=== PATIENT | male | born 1940 | race Caucasian/White ===

== ENCOUNTER 2017-03-02 10:56 | Inpatient (IN) | payer MEDICARE ==
[~2017-03-02] VITALS: Ht 182.8 cm; Wt 103.1 kg
--- NOTE | ~2017-03-02 | CON ---
[place], [place] REPORT OF CONSULTATION NAME: [facility]A [facility]: [id number] UNIT #: [id number] ROOM: 519 DOCTOR: GAVIN GONZALES MD BIRTHDATE: [birth year] DOS: 03/03/2017 REQUESTING PHYSICIAN: Dr. Garcia and Dr. Hunt. REASON FOR CONSULTATION: Acute myocardial infarction. ASSESSMENT: 1. Current presentation with typical complaint of chest pain. 2. Significant worsening of chest pain, not responding to nitroglycerin and usual anti-ischemic medication. 3. Elevated cardiac enzymes consistent with dpt-AG-fohizkz elevation myocardial infarction. 4. History of coronary artery disease, status post stent placed in at [facility] 5 years ago with no details available. 5. Previous history of tobacco abuse. 6. Diabetes. 7. Hypertension. 8. Hyperlipidemia. 9. Obesity. 10. Early family history of heart disease. PLAN: 1. Continue to cycle cardiac enzymes. 2. Enteric-coated aspirin 325 mg, then 81 mg. 3. Imdur 60 mg 1 tablet p.o. daily. 4. Lovenox 1 mg/kg subQ b.i.d. (hold p.m. dose prior to cardiac catheterization). 5. Keep patient n.p.o. for cardiac catheterization in a.m. 6. Call immediately for any recurrence of chest pain at any time. 7. Exercise, weight loss. 8. Consider sleep study. 9. Stop Motrin. HISTORY AND PHYSICAL: The patient is a pleasant 76-year-old gentleman unknown to our practice, was referred by Dr. Garcia for further evaluation and complaint of chest pain. The pain has been going for the past week. Pain is across the chest, heavy, tight and goes off and on. Initially very minimal, brought in slightly with exertion, got worse over time. The patient yesterday had a significant episode while resting. It did reach almost 7/10, lasted a few hours until the patient presented to the Emergency Room. Unfortunately, nobody gave him a sublingual nitroglycerin. Pain continued and the patient was placed on medication with good control at only Imdur 60 mg took care of the pain. Currently, the patient appeared to be pain free. Prior to that and for the past 5 years, has been doing relatively well. He has limited functional capacity, mainly due to his spinal stenosis and his hip pain and his pain where he had replacement. Usually sleeps on 2 pillows with no reported PND, orthopnea or pedal edema. Apparently, there is no reported loud snoring and no sleep apnea. No fever, no chills, no night sweats. The patient denies ever any symptomatic palpitation or racing heartbeats or any associated dizziness, lightheadedness or near syncope. No fever, no chills, no night sweats. Maintain good appetite, no [place], [place] REPORT OF CONSULTATION NAME: TOMEKA ARRIAGA UNIT #: [id number] ROOM: [facility] DOCTOR: GAVIN GONZALES MD BIRTHDATE: 40 weight loss. PAST MEDICAL HISTORY: As detailed in my assessment. SOCIAL HISTORY: The patient denies any current tobacco, alcohol or illicit drug abuse. FAMILY HISTORY: The patient's father had myocardial infarction at age 62. His mother has a stroke at age 64. CURRENT MEDICATIONS: Vitamin D, Lipitor, lisinopril, Zebeta, lipid, aspirin, vitamin B12, insulin, Motrin, calcium carbonate, Restoril, Dulcolax and Tylenol. ALLERGIES: The patient has no known drug allergies. REVIEW OF SYSTEMS: Currently, the patient denies any headache, diplopia or blurry vision. No fever, no chills, no night sweats, no abdominal pain, no bright blood per rectum or tarry stools. The patient admits to joint pain, but no muscular pain. No anxiety, no depression, no polyuria, no polydipsia, no skin rash. PHYSICAL EXAMINATION: GENERAL: The patient is alert and oriented x 3, quite pleasant, completely flat in bed, does not appear in distress. Denies any ongoing cardiac complaint. Family at bedside, 2 daughters and his . VITAL SIGNS: Blood pressure 115/55, heart rate 50, respiration rate of 16, temperature 97.8. HEENT: Extraocular muscle intact. Pupils equal, round and reactive to light. Conjunctivae: No pallor. Throat: No petechiae. NECK: Good carotid upstroke. Unable to appreciate any bruit, no lymphadenopathy, no thyromegaly. HEART: S1, S2 with faint holosystolic murmur in the left upper sternal border. No rub, no sternal heave. CHEST AND BACK: No deformities. LUNGS: Clear to auscultation. Decreased air movement. No wheezing, no rales. ABDOMEN: Obese, soft, nontender, present bowel sounds, no masses, no bruits. EXTREMITIES: Lower extremities, no edema with faint distal pulses. NEUROLOGIC: Grossly nonfocal. SKIN: No significant rash. DIAGNOSTIC DATA: Electrocardiogram showed normal sinus rhythm with RSR prime in V1 and V2 along with nonspecific ST changes throughout the EKG. LABORATORY DATA: White count 8.0, hemoglobin 13.2, glucose 100. Hemoglobin A1c 6. AST 78, alkaline phosphatase 36, HDL 36, LDL 49, cholesterol 107, triglyceride 108. TSH and free T4 are normal. Initial troponin is 3.2, then 0.9 and then 0.2. CK-MB is 66.7. CLINICAL NOTE: The patient never had a serious effect with no intervention was done at time for the critical is 30 minutes to 74. [place], [place] REPORT OF CONSULTATION NAME: TOMEKA ARRIAGA UNIT #: [id number] ROOM: [facility] DOCTOR: GAVIN GONZALES MD BIRTHDATE: [birth year] GAVIN GONZALES MD CM:CONSTR:REPORT OF CONSULTATION 1157 03/04/17 1541 interface
[~2017-03-02 10:56] MED LIST: LOTREL 5 MG-201 CA1 PO; METFORMIN500 MG PO; MOTRIN800 MG PO
[2017-03-02 11:10] VITALS: BP 164/74
[2017-03-02 11:10] LABS: BASO # 0.1 10*3/uL (0.0-0.1); BASO % 0.5 % (0.0-1.0); EOS # 0.2 10*3/uL (0.0-0.4); EOS % 1.7 % (1.0-4.0); HEMOGLOBIN 15.5 g/dl (14.0-18.0); LYMPH # 1.4 10*3/uL (1.3-4.4); LYMPH % 14.1 % (27.0-41.0); MEAN CORPUSCULAR HGB 31.7 pg (27.0-31.0); MEAN CORPUSCULAR HGB CONC 35.2 g/dl (33.0-37.0); MEAN PLATELET VOLUME 10.7 fl (9.6-12.3); MONO # 0.7 10*3/uL (0.1-1.0); MONO % 6.9 % (3.0-9.0); NEUT # 7.7 10*3/uL (2.3-7.9); NEUT % 76.5 % (47.0-73.0); PLATELET COUNT AUTOMATED 241 10*3/uL (130-400); RED BLOOD COUNT 4.89 10*6/uL (4.50-5.90); RED CELL DISTRI WIDTH 11.9 % (0-14.5); WHITE BLOOD COUNT 10.1 10*3/uL (4.8-10.8)
[2017-03-02 11:20] LABS: ACT PARTIAL THROMBO TIME 23.1 SECONDS (20.8-31.5)
[2017-03-02 11:27] LABS: ALBUMIN 3.8 gm/dl (3.1-4.5); ALKALINE PHOSPHATASE 41 U/L (45-117); BUN 24 mg/dl (7-24); CHLORIDE 101 mmol/L (98-107); CREATININE 1.07 mg/dL (0.70-1.30); POTASSIUM 4.4 mmol/L (3.5-5.1); SGOT/AST 19 IU/L (3-35); SGPT/ALT 24 U/L (12-78); SODIUM 135 mmol/L (136-145); TOTAL PROTEIN 7.7 gm/dL (6.4-8.2)
[2017-03-02 11:29] LABS: TROPONIN I < 0.015 ng/ml (<0.045)
[2017-03-02 11:45] VITALS: BP 166/78
[2017-03-02] MEDS ORDERED: METFORMIN500 MG PO (11:45)
[2017-03-02] MEDS ORDERED: LIPITOR20 MG PO (11:46)
[2017-03-02] MEDS ORDERED: BENAZEPRIL20 MG PO (11:46)
[2017-03-02] MEDS ORDERED: VITAMIN D50000 UNIT PO (11:47)
[2017-03-02] MEDS ORDERED: BYSTOLIC5 MG PO (11:47)
[2017-03-02] MEDS ORDERED: AMLODIPINE BESYL5 MG PO (11:47)
[2017-03-02] MEDS ORDERED: ASPIRIN81 M1 PO (11:47)
[2017-03-02] MEDS ORDERED: Motrin,Rufen800 MG PO (11:47)
[2017-03-02] MEDS ORDERED: OYSTER SHELL C1 EAC3 PO (11:48)
[2017-03-02 12:10] VITALS: BP 150/70
[2017-03-02 12:14] VITALS: BP 124/68
[2017-03-02 16:00] VITALS: BP 146/74
[2017-03-02 20:00] VITALS: BP 166/67
[2017-03-02 20:40] LABS: CKMB 26.4 ng/ml (0.5-3.6); TROPONIN I 0.972 ng/ml (<0.045)
[2017-03-02 23:40] LABS: CKMB 66.7 ng/ml (0.5-3.6)
[2017-03-02 23:41] LABS: TROPONIN I 3.29 ng/ml (<0.045)
[2017-03-03] VITALS: BP 141/71
[2017-03-03 04:00] VITALS: BP 117/63
[2017-03-03 06:31] LABS: BASO % 0.5 % (0.0-1.0); EOS # 0.2 10*3/uL (0.0-0.4); EOS % 2.5 % (1.0-4.0); HEMATOCRIT 38.4 % (42.0-52.0); LYMPH # 1.3 10*3/uL (1.3-4.4); LYMPH % 16.2 % (27.0-41.0); MEAN CELL VOLUME 91.2 fl (80.0-94.0); MEAN CORPUSCULAR HGB 31.4 pg (27.0-31.0); MEAN CORPUSCULAR HGB CONC 34.4 g/dl (33.0-37.0); MEAN PLATELET VOLUME 11.3 fl (9.6-12.3); MONO # 0.8 10*3/uL (0.1-1.0); MONO % 9.9 % (3.0-9.0); NEUT # 5.7 10*3/uL (2.3-7.9); NEUT % 70.5 % (47.0-73.0); PLATELET COUNT AUTOMATED 217 10*3/uL (130-400); RED BLOOD COUNT 4.21 10*6/uL (4.50-5.90); RED CELL DISTRI WIDTH 11.9 % (0-14.5)
[2017-03-03 06:34] LABS: HEMOGLOBIN 13.2 g/dl (14.0-18.0)
[2017-03-03 06:40] LABS: ALBUMIN 3.4 gm/dl (3.1-4.5); ALKALINE PHOSPHATASE 36 U/L (45-117); BUN 20 mg/dl (7-24); CHLORIDE 101 mmol/L (98-107); CHOLESTEROL 107 mg/dL (<200); CREATININE 0.87 mg/dL (0.70-1.30); FREE T4 1.08 ng/dl (0.76-1.46); HDL CHOLESTEROL 36 mg/dl (40-60); LDL CHOLESTEROL 49 mg/dL (9-159); PHOSPHOROUS 3.7 mg/dL (2.5-4.9); POTASSIUM 4.1 mmol/L (3.5-5.1); SGOT/AST 78 IU/L (3-35); SGPT/ALT 26 U/L (12-78); SODIUM 137 mmol/L (136-145); TOTAL PROTEIN 6.4 gm/dL (6.4-8.2); TRIGLYCERIDES 108 mg/dl (<150); VLDL CHOLESTEROL 22 mg/dL (6-40)
[2017-03-03 08:00] VITALS: BP 115/55
[2017-03-03 12:00] VITALS: BP 123/59
[2017-03-03 16:00] VITALS: BP 118/58
[2017-03-03] MEDS ORDERED: IMDUR SA30 MG PO (16:36)
[2017-03-03] MEDS ORDERED: NITROSTAT0.4 MG SL (16:36)
[2017-03-03 20:00] VITALS: BP 126/61
[2017-03-04] VITALS: BP 140/50
== END 2017-03-04 05:15 | disposition other institution (70) | DRG 281 ==
LOC: ED 10:56 → 5E 11:39 → EDHOLD 11:39 → 5E 11:43
PROVIDERS: Emergency Medicine; Internal Medicine; Internal Medicine Cardiovascular Disease; ADMIT Internal Medicine
DX: I21.4 Non-ST elevation (NSTEMI) myocardial infarction (principal); E87.1 Hypo-osmolality and hyponatremia; E11.65 Type 2 diabetes mellitus with hyperglycemia; R07.2 Precordial pain; D72.810 Lymphocytopenia; E66.9 Obesity, unspecified; Z96.642 Presence of left artificial hip joint; I25.119 Atherosclerotic heart disease of native coronary artery with unspecified angina pectoris; G89.29 Other chronic pain; M54.9 Dorsalgia, unspecified; E78.5 Hyperlipidemia, unspecified; I10 Essential (primary) hypertension; R00.1 Bradycardia, unspecified; M48.00 Spinal stenosis, site unspecified; Z79.84 Long term (current) use of oral hypoglycemic drugs; Z79.82 Long term (current) use of aspirin; Z79.899 Other long term (current) drug therapy; Z87.891 Personal history of nicotine dependence; Z95.5 Presence of coronary angioplasty implant and graft; Z82.49 Family history of ischemic heart disease and other diseases of the circulatory system; Z83.3 Family history of diabetes mellitus; Z68.30 Body mass index [BMI] 30.0-30.9, adult; Z82.3 Family history of stroke; Z79.1 Long term (current) use of non-steroidal anti-inflammatories (NSAID)

== ENCOUNTER → 2017-04-09 | Outpatient (CLI) | payer MEDICARE ==
[~2017-04-09] MED LIST changes: +AMLODIPINE BESYL5 MG PO; +ASPIRIN81 M1 PO; +BENAZEPRIL20 MG PO; +BYSTOLIC5 MG PO; +IMDUR SA30 MG PO; +LIPITOR20 MG PO; +Motrin,Rufen800 MG PO; +NITROSTAT0.4 MG SL; +OYSTER SHELL C1 EAC3 PO; +VITAMIN D50000 UNIT PO
== END ==
LOC: CARD 01:11
DX: I08.0 Rheumatic disorders of both mitral and aortic valves (principal); I25.10 Atherosclerotic heart disease of native coronary artery without angina pectoris

== ENCOUNTER → 2017-06-26 | Outpatient (CLI) | payer MEDICARE ==
[2017-06-26 08:50] LABS: CHLORIDE 103 mmol/L (98-107); POTASSIUM 4.7 mmol/L (3.5-5.1); SODIUM 135 mmol/L (136-145)
[2017-06-26 09:01] LABS: BASO % 0.5 % (0.0-1.0); EOS # 0.1 10*3/uL (0.0-0.4); EOS % 1.5 % (1.0-4.0); HEMOGLOBIN 14.9 g/dl (14.0-18.0); LYMPH # 1.5 10*3/uL (1.3-4.4); LYMPH % 17.6 % (27.0-41.0); MEAN CELL VOLUME 91.5 fl (80.0-94.0); MEAN CORPUSCULAR HGB 31.7 pg (27.0-31.0); MEAN CORPUSCULAR HGB CONC 34.7 g/dl (33.0-37.0); MEAN PLATELET VOLUME 10.6 fl (9.6-12.3); MONO # 0.7 10*3/uL (0.1-1.0); MONO % 8.4 % (3.0-9.0); NEUT # 6.2 10*3/uL (2.3-7.9); NEUT % 71.5 % (47.0-73.0); PLATELET COUNT AUTOMATED 262 10*3/uL (130-400); RED CELL DISTRI WIDTH 12.6 % (0-14.5); WHITE BLOOD COUNT 8.7 10*3/uL (4.8-10.8)
[2017-06-26 09:10] LABS: ALKALINE PHOSPHATASE 33 U/L (45-117); BUN 18 mg/dl (7-24); CHOLESTEROL 122 mg/dL (<200); CREATININE 0.94 mg/dL (0.70-1.30); HDL CHOLESTEROL 38 mg/dl (40-60); LDL CHOLESTEROL 69 mg/dL (9-159); SGOT/AST 21 IU/L (3-35); SGPT/ALT 30 U/L (12-78); TOTAL PROTEIN 7.7 gm/dL (6.4-8.2); TRIGLYCERIDES 76 mg/dl (<150); VLDL CHOLESTEROL 15 mg/dL (6-40)
== END | disposition home or self-care (01) ==
LOC: LAB 07:57
PROVIDERS: Internal Medicine
DX: Z12.5 Encounter for screening for malignant neoplasm of prostate (principal); I10 Essential (primary) hypertension; E55.9 Vitamin D deficiency, unspecified; E78.2 Mixed hyperlipidemia; N40.1 Benign prostatic hyperplasia with lower urinary tract symptoms

== ENCOUNTER → 2018-01-30 | Outpatient (CLI) | payer MEDICARE ==
[~2018-01-30] MED LIST changes: +DELTASONE20 M1 PO; +NORCO 5-325 TA1 EACH PO
== END | disposition home or self-care (01) ==
LOC: RESCLI 08:38
DX: I10 Essential (primary) hypertension (principal); E11.42 Type 2 diabetes mellitus with diabetic polyneuropathy; L20.89 Other atopic dermatitis; E78.2 Mixed hyperlipidemia; I25.10 Atherosclerotic heart disease of native coronary artery without angina pectoris; M48.00 Spinal stenosis, site unspecified; Z79.82 Long term (current) use of aspirin; Z79.899 Other long term (current) drug therapy

== ENCOUNTER 2018-01-31 11:26 | Emergency (ER) | payer MEDICARE ==
[~2018-01-31] VITALS: Ht 182.8 cm; Wt 98.9 kg
[~2018-01-31 11:26] MED LIST changes: -DELTASONE20 M1 PO; -NORCO 5-325 TA1 EACH PO
[2018-01-31] MEDS ORDERED: DELTASONE20 M1 PO (14:28)
[2018-01-31] MEDS ORDERED: NORCO 5-325 TA1 EACH PO (14:28)
== END 2018-01-31 14:40 | disposition home or self-care (01) ==
LOC: ED 11:26
DX: M54.16 Radiculopathy, lumbar region (principal); Z79.899 Other long term (current) drug therapy; Z79.82 Long term (current) use of aspirin; Z87.891 Personal history of nicotine dependence

== ENCOUNTER → 2018-02-04 | Outpatient (CLI) | payer MEDICARE ==
[~2018-02-04] MED LIST changes: +DELTASONE20 M1 PO; +NORCO 5-325 TA1 EACH PO
== END | disposition home or self-care (01) ==
LOC: RESCLI 02:37
DX: I10 Essential (primary) hypertension (principal); E11.42 Type 2 diabetes mellitus with diabetic polyneuropathy; L20.89 Other atopic dermatitis; E78.2 Mixed hyperlipidemia; I25.10 Atherosclerotic heart disease of native coronary artery without angina pectoris; M48.00 Spinal stenosis, site unspecified; Z79.82 Long term (current) use of aspirin; Z79.84 Long term (current) use of oral hypoglycemic drugs; Z79.899 Other long term (current) drug therapy

== ENCOUNTER → 2018-03-11 | Outpatient (CLI) | payer MEDICARE | END | disposition home or self-care (01) | LOC: RESCLI 04:50 | DX: I25.10 Atherosclerotic heart disease of native coronary artery without angina pectoris (principal); L20.89 Other atopic dermatitis; I10 Essential (primary) hypertension; E78.2 Mixed hyperlipidemia; E11.42 Type 2 diabetes mellitus with diabetic polyneuropathy; M19.90 Unspecified osteoarthritis, unspecified site; Z79.82 Long term (current) use of aspirin; Z79.899 Other long term (current) drug therapy; Z79.84 Long term (current) use of oral hypoglycemic drugs ==

== ENCOUNTER → 2019-01-20 | Outpatient (CLI) | payer MEDICARE | END | disposition home or self-care (01) | LOC: RESCLI 00:26 | DX: Z23 Encounter for immunization (principal); M17.0 Bilateral primary osteoarthritis of knee; G89.29 Other chronic pain; I10 Essential (primary) hypertension; E55.9 Vitamin D deficiency, unspecified; L20.89 Other atopic dermatitis; I25.10 Atherosclerotic heart disease of native coronary artery without angina pectoris; E11.9 Type 2 diabetes mellitus without complications; E78.2 Mixed hyperlipidemia; E66.9 Obesity, unspecified; Z68.32 Body mass index [BMI] 32.0-32.9, adult; Z79.82 Long term (current) use of aspirin; Z79.899 Other long term (current) drug therapy; Z79.84 Long term (current) use of oral hypoglycemic drugs; Z79.02 Long term (current) use of antithrombotics/antiplatelets; Z95.5 Presence of coronary angioplasty implant and graft ==

== ENCOUNTER → 2019-02-24 | Outpatient (CLI) | payer MEDICARE | END | disposition home or self-care (01) | LOC: RESCLI 01:14 | DX: I25.10 Atherosclerotic heart disease of native coronary artery without angina pectoris (principal); I10 Essential (primary) hypertension; E55.9 Vitamin D deficiency, unspecified; L20.89 Other atopic dermatitis; E11.9 Type 2 diabetes mellitus without complications; E78.2 Mixed hyperlipidemia; E66.9 Obesity, unspecified; M17.0 Bilateral primary osteoarthritis of knee; Z79.899 Other long term (current) drug therapy ==

== ENCOUNTER → 2019-02-27 | Outpatient (CLI) | payer MEDICARE | END | disposition home or self-care (01) | LOC: ORTHO 01:21 | DX: M17.11 Unilateral primary osteoarthritis, right knee (principal) ==

== ENCOUNTER → 2019-04-01 | Outpatient (CLI) | payer MEDICARE | END | disposition home or self-care (01) | LOC: RESCLI 00:28 | DX: E55.9 Vitamin D deficiency, unspecified (principal); L20.89 Other atopic dermatitis; I10 Essential (primary) hypertension; E78.2 Mixed hyperlipidemia; I25.10 Atherosclerotic heart disease of native coronary artery without angina pectoris; E11.9 Type 2 diabetes mellitus without complications; M17.10 Unilateral primary osteoarthritis, unspecified knee; E66.9 Obesity, unspecified; Z79.899 Other long term (current) drug therapy ==

== ENCOUNTER → 2019-04-02 | Outpatient (CLI) | payer MEDICARE ==
[2019-04-02 09:41] LABS: BASO % 0.4 % (0.0-1.0); EOS # 0.2 10*3/uL (0.0-0.4); EOS % 2.6 % (1.0-4.0); HEMATOCRIT 45.8 % (42.0-52.0); HEMOGLOBIN 15.5 g/dl (14.0-18.0); LYMPH # 1.5 10*3/uL (1.3-4.4); LYMPH % 21.3 % (27.0-41.0); MEAN CELL VOLUME 94.4 fl (80.0-94.0); MEAN CORPUSCULAR HGB CONC 33.8 g/dl (33.0-37.0); MEAN PLATELET VOLUME 10.8 fl (9.6-12.3); MONO # 0.8 10*3/uL (0.1-1.0); NEUT # 4.4 10*3/uL (2.3-7.9); NEUT % 64.3 % (47.0-73.0); PLATELET COUNT AUTOMATED 238 10*3/uL (130-400); RED BLOOD COUNT 4.85 10*6/uL (4.50-5.90); RED CELL DISTRI WIDTH 11.7 % (0-14.5); WHITE BLOOD COUNT 6.8 10*3/uL (4.8-10.8)
[2019-04-02 10:11] LABS: ALKALINE PHOSPHATASE 30 U/L (45-117); BUN 22 mg/dl (7-24); CHLORIDE 107 mmol/L (98-107); CHOLESTEROL 130 mg/dL (<200); CREATININE 0.91 mg/dL (0.70-1.30); HDL CHOLESTEROL 41 mg/dl (40-60); LDL CHOLESTEROL 62 mg/dL (9-159); PHOSPHOROUS 2.8 mg/dL (2.5-4.9); POTASSIUM 3.9 mmol/L (3.5-5.1); SGOT/AST 15 IU/L (3-35); SGPT/ALT 30 U/L (12-78); SODIUM 137 mmol/L (136-145); TOTAL PROTEIN 7.1 gm/dL (6.4-8.2); TRIGLYCERIDES 134 mg/dl (<150); VLDL CHOLESTEROL 27 mg/dL (6-40)
[2019-04-02 10:34] LABS: VITAMIN D, 25-HYDROXY 45.8 ng/mL (30-100)
== END | disposition home or self-care (01) ==
LOC: LAB 08:29
PROVIDERS: Internal Medicine
DX: Z12.5 Encounter for screening for malignant neoplasm of prostate (principal); I10 Essential (primary) hypertension; E55.9 Vitamin D deficiency, unspecified; E78.2 Mixed hyperlipidemia; E11.42 Type 2 diabetes mellitus with diabetic polyneuropathy; E11.9 Type 2 diabetes mellitus without complications

== ENCOUNTER → 2019-09-30 | Outpatient (CLI) | payer MEDICARE | END | disposition home or self-care (01) | LOC: RESCLI 01:13 | DX: I10 Essential (primary) hypertension (principal); E11.9 Type 2 diabetes mellitus without complications; M17.0 Bilateral primary osteoarthritis of knee; E78.2 Mixed hyperlipidemia; E55.9 Vitamin D deficiency, unspecified; M54.41 Lumbago with sciatica, right side; L20.84 Intrinsic (allergic) eczema; Z53.20 Procedure and treatment not carried out because of patient's decision for unspecified reasons; I25.10 Atherosclerotic heart disease of native coronary artery without angina pectoris; Z28.21 Immunization not carried out because of patient refusal; Z79.84 Long term (current) use of oral hypoglycemic drugs; Z79.82 Long term (current) use of aspirin; Z79.899 Other long term (current) drug therapy; Z95.828 Presence of other vascular implants and grafts; Z96.642 Presence of left artificial hip joint; Z98.890 Other specified postprocedural states ==

== ENCOUNTER → 2020-01-13 | Outpatient (CLI) | payer MEDICARE | END | disposition home or self-care (01) | LOC: RESCLI 01:12 | PROVIDERS: ATTEND Student in an Organized Health Care Education/Training Program | DX: Z23 Encounter for immunization (principal); E11.9 Type 2 diabetes mellitus without complications; I10 Essential (primary) hypertension; M17.0 Bilateral primary osteoarthritis of knee; E78.2 Mixed hyperlipidemia; E55.9 Vitamin D deficiency, unspecified; M54.41 Lumbago with sciatica, right side; I25.10 Atherosclerotic heart disease of native coronary artery without angina pectoris ==

== ENCOUNTER → 2020-01-19 | Outpatient (CLI) | payer MEDICARE | END | disposition home or self-care (01) | LOC: LAB 10:06 | PROVIDERS: ATTEND Internal Medicine | DX: E11.9 Type 2 diabetes mellitus without complications (principal) ==

== ENCOUNTER → 2020-04-27 | Outpatient (CLI) | payer MEDICARE | END | disposition home or self-care (01) | LOC: RESCLI 00:36 | PROVIDERS: ATTEND Internal Medicine | DX: I10 Essential (primary) hypertension (principal); E11.9 Type 2 diabetes mellitus without complications; I25.10 Atherosclerotic heart disease of native coronary artery without angina pectoris; M54.41 Lumbago with sciatica, right side; E78.2 Mixed hyperlipidemia; M17.0 Bilateral primary osteoarthritis of knee; Z79.82 Long term (current) use of aspirin; Z79.84 Long term (current) use of oral hypoglycemic drugs; Z79.899 Other long term (current) drug therapy ==

== ENCOUNTER → 2020-07-07 | Outpatient (CLI) | payer MEDICARE | END | disposition home or self-care (01) | LOC: RESCLI 09:21 | PROVIDERS: ATTEND Internal Medicine Nephrology | DX: L91.8 Other hypertrophic disorders of the skin (principal); I10 Essential (primary) hypertension; M19.90 Unspecified osteoarthritis, unspecified site; E11.9 Type 2 diabetes mellitus without complications; Z98.890 Other specified postprocedural states; Z79.82 Long term (current) use of aspirin; Z79.899 Other long term (current) drug therapy; Z96.642 Presence of left artificial hip joint; Z95.828 Presence of other vascular implants and grafts ==

== ENCOUNTER → 2020-10-12 | Outpatient (CLI) | payer MEDICARE | END | disposition home or self-care (01) | LOC: RESCLI 00:58 | PROVIDERS: ATTEND Internal Medicine | DX: I10 Essential (primary) hypertension (principal); E78.2 Mixed hyperlipidemia; E11.9 Type 2 diabetes mellitus without complications; I25.10 Atherosclerotic heart disease of native coronary artery without angina pectoris; E55.9 Vitamin D deficiency, unspecified; E66.9 Obesity, unspecified; L20.84 Intrinsic (allergic) eczema; M54.41 Lumbago with sciatica, right side; M17.0 Bilateral primary osteoarthritis of knee; Z79.82 Long term (current) use of aspirin; Z79.84 Long term (current) use of oral hypoglycemic drugs; Z79.899 Other long term (current) drug therapy ==

== ENCOUNTER → 2020-10-13 | Outpatient (CLI) | payer MEDICARE ==
[2020-10-13 09:32] LABS: BASO % 0.5 % (0.0-1.0); EOS # 0.2 10*3/uL (0.0-0.4); HEMATOCRIT 43.9 % (42.0-52.0); LYMPH # 1.6 10*3/uL (1.3-4.4); MEAN CELL VOLUME 94.8 fl (80.0-94.0); MEAN CORPUSCULAR HGB 31.7 pg (27.0-31.0); MEAN CORPUSCULAR HGB CONC 33.5 g/dl (33.0-37.0); MEAN PLATELET VOLUME 10.2 fl (9.6-12.3); MONO # 0.8 10*3/uL (0.1-1.0); MONO % 9.6 % (3.0-9.0); NEUT # 5.5 10*3/uL (2.3-7.9); NEUT % 67.4 % (47.0-73.0); PLATELET COUNT AUTOMATED 314 10*3/uL (130-400); RED BLOOD COUNT 4.63 10*6/uL (4.50-5.90); RED CELL DISTRI WIDTH 11.9 % (0-14.5); WHITE BLOOD COUNT 8.2 10*3/uL (4.8-10.8)
[2020-10-13 09:48] LABS: ALBUMIN 3.9 gm/dl (3.1-4.5); ALKALINE PHOSPHATASE 32 U/L (45-117); BUN 19 mg/dl (7-24); CHLORIDE 103 mmol/L (98-107); CHOLESTEROL 121 mg/dL (<200); CREATININE 0.95 mg/dL (0.70-1.30); LDL CHOLESTEROL 56 mg/dL (9-159); POTASSIUM 4.5 mmol/L (3.5-5.1); SGOT/AST 17 IU/L (3-35); SGPT/ALT 25 U/L (12-78); SODIUM 132 mmol/L (136-145); TOTAL PROTEIN 7.4 gm/dL (6.4-8.2); TRIGLYCERIDES 154 mg/dl (<150)
== END | disposition home or self-care (01) ==
LOC: LAB 08:47
PROVIDERS: Internal Medicine; ATTEND Internal Medicine
DX: I10 Essential (primary) hypertension (principal); E11.9 Type 2 diabetes mellitus without complications; E78.2 Mixed hyperlipidemia; E55.9 Vitamin D deficiency, unspecified; E66.9 Obesity, unspecified

== ENCOUNTER → 2021-01-11 | Outpatient (CLI) | payer MEDICARE | END | disposition home or self-care (01) | LOC: RESCLI 01:06 | PROVIDERS: ATTEND Student in an Organized Health Care Education/Training Program | DX: Z23 Encounter for immunization (principal); L20.84 Intrinsic (allergic) eczema; I25.10 Atherosclerotic heart disease of native coronary artery without angina pectoris; M54.41 Lumbago with sciatica, right side; M17.0 Bilateral primary osteoarthritis of knee; E11.9 Type 2 diabetes mellitus without complications; I10 Essential (primary) hypertension; E78.2 Mixed hyperlipidemia; Z79.899 Other long term (current) drug therapy; Z79.84 Long term (current) use of oral hypoglycemic drugs; Z79.82 Long term (current) use of aspirin; Z98.890 Other specified postprocedural states ==

== ENCOUNTER → 2021-04-26 | Outpatient (CLI) | payer MEDICARE ==
[2021-04-26 14:10] LABS: BASO # 0.1 10*3/uL (0.0-0.1); BASO % 0.5 % (0.0-1.0); EOS # 0.2 10*3/uL (0.0-0.4); EOS % 1.5 % (1.0-4.0); HEMATOCRIT 44.2 % (42.0-52.0); LYMPH # 1.4 10*3/uL (1.3-4.4); LYMPH % 13.3 % (27.0-41.0); MEAN CELL VOLUME 92.7 fl (80.0-94.0); MEAN CORPUSCULAR HGB 31.9 pg (27.0-31.0); MEAN CORPUSCULAR HGB CONC 34.4 g/dl (33.0-37.0); MEAN PLATELET VOLUME 10.6 fl (9.6-12.3); MONO # 0.9 10*3/uL (0.1-1.0); MONO % 8.1 % (3.0-9.0); NEUT % 76.3 % (47.0-73.0); PLATELET COUNT AUTOMATED 282 10*3/uL (130-400); RED BLOOD COUNT 4.77 10*6/uL (4.50-5.90); RED CELL DISTRI WIDTH 12.1 % (0-14.5); WHITE BLOOD COUNT 10.5 10*3/uL (4.8-10.8)
[2021-04-26 14:25] LABS: ALBUMIN 3.9 gm/dl (3.1-4.5); ALKALINE PHOSPHATASE 32 U/L (45-117); BUN 29 mg/dl (7-24); CHLORIDE 105 mmol/L (98-107); CREATININE 0.99 mg/dL (0.70-1.30); POTASSIUM 4.4 mmol/L (3.5-5.1); SGOT/AST 14 IU/L (3-35); SGPT/ALT 24 U/L (12-78); SODIUM 135 mmol/L (136-145); TOTAL PROTEIN 7.3 gm/dL (6.4-8.2)
== END | disposition home or self-care (01) ==
LOC: RESCLI 00:40
PROVIDERS: Internal Medicine; ATTEND Internal Medicine
DX: M17.0 Bilateral primary osteoarthritis of knee (principal); M25.762 Osteophyte, left knee; M25.761 Osteophyte, right knee; I10 Essential (primary) hypertension; E11.9 Type 2 diabetes mellitus without complications; I25.10 Atherosclerotic heart disease of native coronary artery without angina pectoris; E78.2 Mixed hyperlipidemia; L20.84 Intrinsic (allergic) eczema; M54.41 Lumbago with sciatica, right side; Z79.84 Long term (current) use of oral hypoglycemic drugs; Z79.899 Other long term (current) drug therapy; Z96.642 Presence of left artificial hip joint; Z98.890 Other specified postprocedural states

== ENCOUNTER → 2021-05-17 | Outpatient (CLI) | payer MEDICARE | LOC: US 13:15 | PROVIDERS: ATTEND Orthopaedic Surgery | DX: I73.89 Other specified peripheral vascular diseases (principal); M25.561 Pain in right knee; M25.562 Pain in left knee ==

== ENCOUNTER → 2021-08-02 | Outpatient (CLI) | payer MEDICARE | END | disposition home or self-care (01) | LOC: RESCLI 07-27 16:37 | PROVIDERS: ATTEND Emergency Medicine | DX: E78.5 Hyperlipidemia, unspecified (principal); E11.9 Type 2 diabetes mellitus without complications; I10 Essential (primary) hypertension; M19.90 Unspecified osteoarthritis, unspecified site; I25.10 Atherosclerotic heart disease of native coronary artery without angina pectoris; E78.2 Mixed hyperlipidemia; L20.84 Intrinsic (allergic) eczema; M54.41 Lumbago with sciatica, right side; M17.0 Bilateral primary osteoarthritis of knee; M51.36 Other intervertebral disc degeneration, lumbar region; Z96.642 Presence of left artificial hip joint; Z79.899 Other long term (current) drug therapy; Z98.890 Other specified postprocedural states ==

== ENCOUNTER → 2021-10-25 | Outpatient (CLI) | payer MEDICARE ==
[2021-10-25 12:04] LABS: BASO # 0.1 10*3/uL (0.0-0.1); BASO % 0.5 % (0.0-1.0); EOS # 0.2 10*3/uL (0.0-0.4); EOS % 1.9 % (1.0-4.0); LYMPH # 1.3 10*3/uL (1.3-4.4); LYMPH % 12.6 % (27.0-41.0); MEAN CELL VOLUME 92.7 fl (80.0-94.0); MEAN CORPUSCULAR HGB 32.7 pg (27.0-31.0); MEAN CORPUSCULAR HGB CONC 35.2 g/dl (33.0-37.0); MEAN PLATELET VOLUME 9.9 fl (9.6-12.3); MONO # 0.8 10*3/uL (0.1-1.0); NEUT # 7.8 10*3/uL (2.3-7.9); NEUT % 76.6 % (47.0-73.0); PLATELET COUNT AUTOMATED 285 10*3/uL (130-400); RED BLOOD COUNT 4.53 10*6/uL (4.50-5.90); WHITE BLOOD COUNT 10.2 10*3/uL (4.8-10.8)
[2021-10-25 12:19] LABS: ALKALINE PHOSPHATASE 31 U/L (45-117); BUN 22 mg/dl (7-24); CHLORIDE 105 mmol/L (98-107); CREATININE 1.02 mg/dL (0.70-1.30); POTASSIUM 4.7 mmol/L (3.5-5.1); SGOT/AST 17 IU/L (3-35); SGPT/ALT 20 U/L (12-78); SODIUM 134 mmol/L (136-145); TOTAL PROTEIN 7.1 gm/dL (6.4-8.2)
== END | disposition home or self-care (01) ==
LOC: RESCLI 01:18
PROVIDERS: ATTEND Internal Medicine
DX: I11.9 Hypertensive heart disease without heart failure (principal); E11.9 Type 2 diabetes mellitus without complications; I25.10 Atherosclerotic heart disease of native coronary artery without angina pectoris; M17.0 Bilateral primary osteoarthritis of knee; M54.41 Lumbago with sciatica, right side; E78.2 Mixed hyperlipidemia; L20.84 Intrinsic (allergic) eczema; Z79.899 Other long term (current) drug therapy; Z79.82 Long term (current) use of aspirin; Z79.01 Long term (current) use of anticoagulants

== ENCOUNTER → 2022-01-24 | Outpatient (CLI) | payer MEDICARE ==
[~2022-01-24] MED LIST changes: +CEFEPIME1 GM/50 ML IV; +HYDROCODONE-AC1 EAC1 PO; +IBU600 M1 PO; +METFORMIN HYDR500 MG PO; +METOPROLOL SUCC25 M2 PO; -Motrin,Rufen800 MG PO; +OYSTER SHELL 51 EAC5 PO; +PHARMASSURE V500 MCG PO; +PLAVIX75 M1 PO; +SINEMET 25-1001 EACH PO; +VANCO 1 GR1 GM/250 M IV; +VITAMIN D250 MC1 PO
== END | disposition home or self-care (01) ==
LOC: RESCLI 00:25
PROVIDERS: ATTEND Internal Medicine
DX: Z23 Encounter for immunization (principal); G20 Parkinson's disease; E78.2 Mixed hyperlipidemia; L20.84 Intrinsic (allergic) eczema; M54.41 Lumbago with sciatica, right side; I25.10 Atherosclerotic heart disease of native coronary artery without angina pectoris; M17.0 Bilateral primary osteoarthritis of knee; E11.9 Type 2 diabetes mellitus without complications; I10 Essential (primary) hypertension; Z95.5 Presence of coronary angioplasty implant and graft

== ENCOUNTER → 2022-04-25 | Outpatient (CLI) | payer MEDICARE ==
[2022-04-25 12:27] LABS: BASO # 0.1 10*3/uL (0.0-0.1); BASO % 0.6 % (0.0-1.0); EOS # 0.2 10*3/uL (0.0-0.4); EOS % 1.9 % (1.0-4.0); HEMATOCRIT 41.6 % (42.0-52.0); LYMPH # 1.2 10*3/uL (1.3-4.4); LYMPH % 13.6 % (27.0-41.0); MEAN CELL VOLUME 94.3 fl (80.0-94.0); MEAN CORPUSCULAR HGB CONC 33.9 g/dl (33.0-37.0); MEAN PLATELET VOLUME 10.1 fl (9.6-12.3); MONO # 0.6 10*3/uL (0.1-1.0); MONO % 7.1 % (3.0-9.0); NEUT # 6.9 10*3/uL (2.3-7.9); NEUT % 76.4 % (47.0-73.0); PLATELET COUNT AUTOMATED 253 10*3/uL (130-400); RED BLOOD COUNT 4.41 10*6/uL (4.50-5.90); RED CELL DISTRI WIDTH 12.3 % (0-14.5)
[2022-04-25 12:43] LABS: ALKALINE PHOSPHATASE 29 U/L (46-116); BUN 18 mg/dl (9-23); CHLORIDE 103 mmol/L (98-107); CHOLESTEROL 133 mg/dL (<200); LDL CHOLESTEROL 70 mg/dL (9-159); POTASSIUM 4.1 mmol/L (3.4-5.1); TOTAL PROTEIN 6.7 gm/dL (6.0-8.0); TRIGLYCERIDES 128 mg/dl (<150)
[2022-04-25 12:46] LABS: SGPT/ALT < 7 U/L (10-49)
== END | disposition home or self-care (01) ==
LOC: RESCLI 02:30
PROVIDERS: ATTEND Internal Medicine
DX: I10 Essential (primary) hypertension (principal); E11.9 Type 2 diabetes mellitus without complications; E78.2 Mixed hyperlipidemia; I25.10 Atherosclerotic heart disease of native coronary artery without angina pectoris; Z98.890 Other specified postprocedural states; Z82.49 Family history of ischemic heart disease and other diseases of the circulatory system; Z79.82 Long term (current) use of aspirin; Z79.84 Long term (current) use of oral hypoglycemic drugs; Z79.899 Other long term (current) drug therapy

== ENCOUNTER → 2022-07-24 | Outpatient (CLI) | payer MEDICARE ==
[2022-07-24 19:24] LABS: ALKALINE PHOSPHATASE 26 U/L (46-116); BUN 18 mg/dl (9-23); CHLORIDE 99 mmol/L (98-107); POTASSIUM 4.3 mmol/L (3.4-5.1); SGPT/ALT 14 U/L (10-49); TOTAL PROTEIN 6.9 gm/dL (6.0-8.0)
== END | disposition home or self-care (01) ==
LOC: LAB 16:59
PROVIDERS: ATTEND Internal Medicine
DX: U07.1 COVID-19 (principal)

== ENCOUNTER → 2022-08-01 | Outpatient (CLI) | payer MEDICARE | END | disposition home or self-care (01) | LOC: RESCLI 07-29 04:08 | PROVIDERS: ATTEND Internal Medicine | DX: E78.2 Mixed hyperlipidemia (principal); K59.00 Constipation, unspecified; E53.8 Deficiency of other specified B group vitamins; I10 Essential (primary) hypertension; M17.0 Bilateral primary osteoarthritis of knee; G20 Parkinson's disease; I25.10 Atherosclerotic heart disease of native coronary artery without angina pectoris; Z79.82 Long term (current) use of aspirin; Z79.84 Long term (current) use of oral hypoglycemic drugs; Z79.899 Other long term (current) drug therapy; Z86.16 Personal history of COVID-19 ==

== ENCOUNTER → 2024-05-18 | Outpatient (CLI) | payer MEDICARE | END | disposition home or self-care (01) | LOC: RAD 08:52 | PROVIDERS: ATTEND Internal Medicine | DX: M19.021 Primary osteoarthritis, right elbow (principal); M25.521 Pain in right elbow ==

== ENCOUNTER 2024-06-06 21:20 | Emergency (ER) | payer MEDICARE ==
[~2024-06-06] VITALS: Ht 185.4 cm; Wt 100.7 kg
[2024-06-06] MEDS ORDERED: ACETAMINOPHEN 325 MG TAB PO ONE (21:45)
[2024-06-06 22:05] LABS: HEMATOCRIT 42.4 % (42.0-52.0); MEAN CELL VOLUME 94.4 fl (80.0-94.0); MEAN CORPUSCULAR HGB 31.6 pg (27.0-31.0); MEAN CORPUSCULAR HGB CONC 33.5 g/dl (33.0-37.0); MEAN PLATELET VOLUME 9.8 fl (9.6-12.3); PLATELET COUNT AUTOMATED 233 10*3/uL (130-400); RED BLOOD COUNT 4.49 10*6/uL (4.50-5.90); RED CELL DISTRI WIDTH 12.3 % (0-14.5); WHITE BLOOD COUNT 12.7 10*3/uL (4.8-10.8)
[2024-06-06 22:06] LABS: MANUAL DIFF REFLEX YES
[2024-06-06 22:23] LABS: BUN 27 mg/dl (9-23); CHLORIDE 101 mmol/L (98-107); POTASSIUM 4.4 mmol/L (3.4-5.1)
[2024-06-06 22:31] LABS: PLATELET SUFFICIENCY NORMAL (NORMAL); TOTAL CELLS COUNTED 100 #CELLS
[2024-06-06 23:41] LABS: BILIRUBIN Negative (Negative); BLOOD Negative (Negative); CLARITY Clear (Clear); COLOR Yellow (Yellow); GLUCOSE Trace (Negative); KETONE 1+ (Negative); LEUKO ESTERASE Negative (Negative); NITRITE Negative (Negative); SPECIFIC GRAVITY >= 1.030 (1.001-1.030); UROBILINOGEN 0.2 E.U./dl (0.0-1.0)
[2024-06-07 00:10] LABS: RBC 0-2 rbc/hpf (0-2); WBC 0-2 wbc/hpf (0-5)
[2024-06-07] MEDS ORDERED: AZITHROMYCIN 250 MG TAB PO ONE (00:25)
[2024-06-07] MEDS ORDERED: AVPAK AZITHROM250 MG PO (00:27)
== END 2024-06-07 00:44 | disposition home or self-care (01) ==
LOC: ED 21:20
PROVIDERS: Internal Medicine
DX: J40 Bronchitis, not specified as acute or chronic (principal); I10 Essential (primary) hypertension; E11.9 Type 2 diabetes mellitus without complications; Z20.822 Contact with and (suspected) exposure to COVID-19; Z79.82 Long term (current) use of aspirin; Z79.899 Other long term (current) drug therapy; Z96.642 Presence of left artificial hip joint; Z98.890 Other specified postprocedural states

== ENCOUNTER → 2024-06-24 | Outpatient (CLI) | payer MEDICARE ==
[~2024-06-24] MED LIST changes: +AVPAK AZITHROM250 MG PO
== END | disposition home or self-care (01) ==
LOC: RAD 12:31
PROVIDERS: ATTEND Family Medicine
DX: J40 Bronchitis, not specified as acute or chronic (principal); I51.7 Cardiomegaly; R06.02 Shortness of breath